=== PATIENT | female | born 1960 | race Caucasian/White ===

== ENCOUNTER 2024-05-27 13:24 | Day surgery (SDC) | payer MEDICAID, SELFPAY ==
[2024-05-27 13:34] VITALS: BP 115/77; PULSE 60; RESP 16; TEMP 36.9; O2SAT 98; BMI 25.3
[2024-05-27] MEDS: LIDOCAINE 1% 5ML PF VIAL 5 ML ×2 (14:21)
[2024-05-27] MEDS: BUPIVACAINE 0.25% 10ML INJ 25 MG IJ (14:21)
[2024-05-27 14:22] VITALS: BP 115/77; PULSE 60; RESP 18; O2SAT 98
[2024-05-27 14:24] VITALS: BP 115/77; PULSE 60; RESP 18; O2SAT 98
[2024-05-27 14:36] VITALS: BP 111/82; PULSE 68; RESP 16; O2SAT 97
--- NOTE | 2024-05-27 16:33 | P.PCN_ITS ---
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 She presents for ultrasound-guided lateral femoral cutaneous nerve block today. Procedure Details:: Informed consent was obtained risk and benefits of the procedure were explained to the patient the patient was placed supine on the procedure table. The right groin was prepped using ChloraPrep. Under ultrasound guidance we injected 10 mL lidocaine 1% and Depo-Medrol 40 mg into and around the lateral femoral cutaneous nerve and femoral nerve. Patient tolerated the procedure well with no complications. Plan and Disposition:: We will follow-up with this patient in her [place] office. Will evaluate effi cacy of this injection. Will reevaluate symptoms at that time.
== END 2024-05-27 14:36 | disposition home or self-care (01) ==
LOC: SC.PAINP 13:30
PROVIDERS: PCP Family Medicine; Visit Provider Anesthesiology
DX: G57.10 Meralgia paresthetica, unspecified lower limb (principal)
CPT/HCPCS: 64447; J1010